=== PATIENT | female | born 1955 | race Caucasian/White ===

== ENCOUNTER → 2019-11-23 | Outpatient (CLI) | payer MEDICARE, MEDICAID | END | disposition home or self-care (01) | LOC: CFH 13:13 | PROVIDERS: ATTEND Neurological Surgery | DX: S22.050A Wedge compression fracture of T5-T6 vertebra, initial encounter for closed fracture (principal); S22.080A Wedge compression fracture of T11-T12 vertebra, initial encounter for closed fracture; M43.8X4 Other specified deforming dorsopathies, thoracic region; M41.83 Other forms of scoliosis, cervicothoracic region; G95.29 Other cord compression; K44.9 Diaphragmatic hernia without obstruction or gangrene; M41.86 Other forms of scoliosis, lumbar region; M51.36 Other intervertebral disc degeneration, lumbar region; M50.31 Other cervical disc degeneration, high cervical region; X58.XXXA Exposure to other specified factors, initial encounter; Y93.89 Activity, other specified; Y92.89 Other specified places as the place of occurrence of the external cause; Y99.8 Other external cause status | CPT/HCPCS: 72125; 72128; 72131 ==

== ENCOUNTER 2020-01-17 11:10 | Day surgery (SDC) | payer MEDICARE, MEDICAID ==
[~2020-01-17] VITALS: Ht 152.4 cm; Wt 39.0 kg
[2020-01-17] MEDS ORDERED: LACTATED RINGERS 1,000 ML IV SCH (12:43)
[2020-01-17] MEDS ORDERED: VALIUM PO (12:47)
[2020-01-17] MEDS ORDERED: OXYC-307 PO (12:47)
[2020-01-17] MEDS ORDERED: MORPHINE ER PO (12:47)
[2020-01-17 12:51] VITALS: BP 138/79
[2020-01-17] MEDS ORDERED: EPHEDRINE 50 MG/ML, 1ML ONE (13:00)
[2020-01-17] MEDS ORDERED: CHLORHEXIDINE 15 ML UDC MM ONE (13:00)
[2020-01-17] MEDS ORDERED: PROPOFOL 10 MG/ML, 100ML IV ONE (13:00)
[2020-01-17] MEDS ORDERED: ONDANSETRON 2MG/ML, 2ML ONE (13:00)
[2020-01-17] MEDS ORDERED: SUCCINYLCHOLINE 20 MG/ML, 10ML ONE (13:00)
[2020-01-17] MEDS ORDERED: SUGAMMADEX 200 MG/2 ML IVPush ONE (13:00)
== END 2020-01-17 16:30 | disposition home or self-care (01) ==
LOC: OUT 11:10 → EDSTATUS 12:45 → OUT 16:30
PROVIDERS: ATTEND Neurological Surgery
DX: M41.85 Other forms of scoliosis, thoracolumbar region (principal); Z20.828 Contact with and (suspected) exposure to other viral communicable diseases; M51.36 Other intervertebral disc degeneration, lumbar region; M48.061 Spinal stenosis, lumbar region without neurogenic claudication; M50.30 Other cervical disc degeneration, unspecified cervical region; Z88.0 Allergy status to penicillin
CPT/HCPCS: 72141; 72146; 72148; 87635; J0330; J2405; J2704; J7120

== ENCOUNTER 2020-08-20 04:34 | Emergency (ER) | payer MEDICARE, MEDICAID ==
[~2020-08-20] VITALS: Ht 152.4 cm; Wt 42.0 kg
[~2020-08-20 04:34] MED LIST: MORPHINE ER PO; OXYC-380 PO; VALIUM PO
[2020-08-20] MEDS ORDERED: OXYcodone/APAP 10/325MG TABLET ONE (04:50)
[2020-08-20] MEDS ORDERED: OXYcodone/APAP 10/325MG TABLET PO ONE (05:00)
--- NOTE | 2020-08-20 05:10 | NUR ---
Pt to ER after hearing a pop in her left foot when trying to get on her motorized cart. Foot red and swollen. Pt to xray. Pt medicated for pain per order. Warm blanket given. Will monitor.
--- NOTE | 2020-08-20 05:38 | NUR ---
Pt assisted to BSC. Pt tolerated well. Pt back to bed. Warm blanket given. Pt 2L NC placed for O2 in high 80's. Sats up to 90's after O2. Will monitor.
--- NOTE | 2020-08-20 06:21 | NUR ---
Pt calm in bed. Resting. States pain has improved slightly. Pt states no further needs at this time. Will monitor.
--- NOTE | 2020-08-20 06:49 | NUR ---
Report to day shift RN.
--- NOTE | 2020-08-20 07:00 | NUR ---
assuming care of patient after report from ashely tavares, vss, pt resting in bed, stating toe hurts.
--- NOTE | 2020-08-20 07:21 | NUR ---
this rn attempting to call MTM for patient
--- NOTE | 2020-08-20 08:11 | NUR ---
Preceptor RN: Pt crying because she "did not get any food while in the ER." Pt educated that pt's are usually NPO while in the ER but because she is up for D/C we can provide her with snacks. Pt given water and snacks. Awaiting wheelchair d/c.
--- NOTE | 2020-08-20 08:58 | NUR ---
awaiting mtm ride, pt resting in bed, vss, nadn.
[2020-08-20 08:59] VITALS: BP 175/87
== END 2020-08-20 09:43 | disposition home or self-care (01) ==
LOC: ED 07:27
DX: S90.32XA Contusion of left foot, initial encounter (principal); G89.29 Other chronic pain; M54.5 Low back pain; X58.XXXA Exposure to other specified factors, initial encounter; Y93.89 Activity, other specified; Y92.89 Other specified places as the place of occurrence of the external cause; Y99.8 Other external cause status; Z79.899 Other long term (current) drug therapy
CPT/HCPCS: 99285